=== PATIENT | female | born 1995 | race Two or more races ===

== ENCOUNTER 2024-11-22 15:42 | Emergency (ER) | payer MEDICAID ==
[~2024-11-22 15:42] MED LIST: AMOXICILLIN; METH10TA87
== END 2024-11-22 15:45 | disposition left against medical advice (07) ==
LOC: ER 15:42
DX: L02.91 Cutaneous abscess, unspecified (principal); Z53.21 Procedure and treatment not carried out due to patient leaving prior to being seen by health care provider